=== PATIENT | female | born 1975 | race Caucasian/White ===

== ENCOUNTER 2017-08-27 05:31 | Day surgery (SDC) | payer BC ==
[~2017-08-27] VITALS: Ht 175.3 cm; Wt 71.7 kg
[2017-08-27] VITALS (10 sets, daily range): BP systolic 109–123; BP diastolic 68–81; PULSE 72–85; TEMP 97.1–97.8
[2017-08-27] MEDS ORDERED: HUMIRA40 MG/0.8 SQ (06:01)
[2017-08-27] MEDS ORDERED: ALEVE 220MG220 MG PO (06:02)
[2017-08-27] MEDS ORDERED: EMERGEN-C 1,01000 MG PO (06:03)
[2017-08-27] MEDS ORDERED: MERIBIN5 MG PO (06:18)
[2017-08-27] MEDS ORDERED: NORCO 325 MG-51 TAB PO (08:44)
[2017-08-27] MEDS ORDERED: COLACE 100100 MG/CAP PO (08:44)
[2017-08-27] MEDS ORDERED: MOTRIN 600600 MG/TAB PO (08:45)
== END 2017-08-27 12:23 | disposition home or self-care (01) ==
LOC: SDCO 05:31
DX: K81.1 Chronic cholecystitis (principal); M06.9 Rheumatoid arthritis, unspecified
CPT/HCPCS: J0690; J1100; J1885; J2405; J2704; J3010; J7120; Q9967